=== PATIENT | female | born 1950 | race Caucasian/White ===

== ENCOUNTER 2021-07-05 08:45 | Inpatient (IN) | payer MEDICARE, BC ==
[2021-07-05] MEDS ORDERED: Sodium Chloride 0.9% 10 ML Syringe FLUSH PRN (09:31)
--- NOTE | 2021-07-05 09:41 | EDM.PDOC ---
ED HPI GENERAL MEDICAL PROBLEM - General Chief Complaint: Respiratory Problem Stated Complaint: SOB, DYSPNEA Time Seen by Provider: 07/05/21 09:29 Source of Information: Reports: Patient, RN History Limitations: Reports: No Limitations - History of Present Illness INITIAL COMMENTS - FREE TEXT/NARRATIVE: pt presents to the ED with complaints of one week of steadily worsening claude rtness of breath. associated productive cough and chills. denies fever and chest pain. PMH significant for 45 pack year smoking history but no official COPD diagnosis or PFTS, mixed HLD and unspecified tachycardia for which a beta yaw was started but no underlying etiology was elucidated. symptoms began shortly before xmas and started with fatigue. progressed to mild shortness of breath then became more significant with productive cough over the past 24-48 hours. she tried to rest at home but this did not help. moving around makes it worse. nothing makes it better. she has not had symptoms like this in the past. time of day does not alter symptoms. Onset: Gradual Onset Date: 06/26/21 Duration: Day(s): Location: Reports: Chest Severity: Moderate Improves with: Reports: None Worsens with: Reports: Movement Context: Reports: Sick Contact Associated Symptoms: Reports: Confusion, cough w sputum, Fever/Chills, Other (diarrhea) - Related Data Allergies Allergy/AdvReac Type Severity Reaction Status Date / Time No Known Allergies Allergy Verified 07/05/21 09:05 Home Meds: Home Meds Ascorbic Acid [Vitamin C] 500 mg PO BEDTIME 07/05/21 [History] Calcium Carb/Vit D3/Minerals [Calcium 600+D Plus Minerals] 1 each PO BID 07/05/21 [History] Cholecalciferol (Vitamin D3) [Vitamin D3] 2,000 unit PO DAILY 07/05/21 [History] Ferrous Sulfate [Iron] 325 mg PO DAILY 07/05/21 [History] Gabapentin [Neurontin] 600 mg PO BEDTIME 07/05/21 [History] Glucosam/Chond-MSM 2/C/D3/Delbert [Jghtttexyc-Knoweexzogt-QNG] 1 each PO BID 07/05/21 [History] Metoprolol Succinate 25 mg PO DAILY 07/05/21 [History] Venlafaxine HCl [Venlafaxine HCl ER] 150 mg PO BEDTIME 07/05/21 [History] atorvaSTATin [Lipitor] 20 mg PO BEDTIME 07/05/21 [History] Past Medical History Cardiovascular History: Reports: High Cholesterol, Other (See Below) (tachycardia, never worked up- started on beta yaw) Respiratory History: Reports: Other (See Below) (likely COPD. no official PFTs. 45 pack year smoking history) - Past Surgical History Cardiovascular Surgical History: Reports: None Respiratory Surgical History: Reports: None Social & Family History - Family History Family Medical History: No Pertinent Family History Cardiac: Reports: None - Tobacco Use Tobacco Use Status *Q: Current Every Day Tobacco User Tobacco Use Within Last Twelve Months: Cigarettes Other Tobacco Use Within Last Twelve Months: none Years of Tobacco use: 45 Smoking Cessation Information Provided To Patient: Yes Second Hand Smoke Exposure: No Second Hand Smoke Education Provided: No - Tobacco Core Measures Tobacco Use/Smoking Within Last 30 Days: Yes Smoking Frequency Within Last 30 Days: Reports: Five or More Cigarettes Per Day Smokeless Tobacco Use in Last 30 Days: No Smokeless Tobacco Use History: None Desires Tobacco Cessation Medication: Refuses FDA Approved Med - Caffeine Use Caffeine Use: Reports: Coffee - Alcohol Use Alcohol Use History: No Alcohol Use in Last Twelve Months: No - Recreational Drug Use Recreational Drug Use: No Drug Use in Last 12 Months: No - Sexual History Sexual History: Reports: Same Sex Partner, Other (See Below) (not currently sexually active) - Living Situation & Occupation Living situation: Reports: Single Occupation: Retired Social History Comment: lives at home with 2 dogs ED ROS GENERAL - Review of Systems Review Of Systems: See Below Constitutional: Reports: Chills HEENT: Reports: No Symptoms Respiratory: Reports: Shortness of Breath, Cough, Sputum Cardiovascular: Reports: No Symptoms Endocrine: Reports: No Symptoms GI/Abdominal: Reports: Diarrhea : Reports: No Symptoms Musculoskeletal: Reports: No Symptoms Skin: Reports: No Symptoms Neurological: Reports: No Symptoms Psychiatric: Reports: No Symptoms Hematologic/Lymphatic: Reports: No Symptoms Immunologic: Reports: No Symptoms ED EXAM, GENERAL - Physical Exam Exam: See Below Exam Limited By: No Limitations General Appearance: Alert, Mild Distress Eye Exam: Bilateral Eye: EOMI Ears: Normal External Exam, Hearing Grossly Normal Nose: Normal Inspection Throat/Mouth: Normal Voice, No Airway Compromise Head: Atraumatic, Normocephalic Neck: Normal Inspection, Supple Respiratory/Chest: No Accessory Muscle Use, Decreased Breath Sounds (throughout bilateral mid to lower lung pappas), Rhonchi (diffuse). No: Wheezing, Stridor, Accessory Muscle Use Cardiovascular: Regular Rate, Rhythm, No Edema, No JVD, No Murmur, No Rub GI/Abdominal: Soft, Non-Tender (Female) Exam: Deferred Rectal (Female) Exam: Deferred Back Exam: Full Range of Motion Extremities: Normal Inspection, Normal Range of Motion, Non-Tender, No Pedal Edema Neurological: Alert, Oriented, Normal Cognition Psychiatric: Normal Affect, Normal Mood Skin Exam: Warm, Dry, Intact Lymphatic: No Adenopathy Course - Vital Signs Last Recorded V/S: Last Vital Signs Temp 96.7 F L 07/05/21 08:50 Pulse 101 H 07/05/21 10:10 Resp 20 07/05/21 10:10 BP 128/55 L 07/05/21 10:10 Pulse Ox 92 L 07/05/21 10:10 - Orders/Labs/Meds Orders: Active Orders 24 hr Category Date Time Status Oxygen Therapy [RC] PRN Care 07/05/21 09:31 Active Peripheral IV Care [RC] . DIRECTED Care 07/05/21 09:33 Active Pulse Oximetry [RC] CONTINUOUS Care 07/05/21 09:31 Active Nothing per Oral Now Diet [DIET] Diet 07/05/21 Breakfast Active Chest 2V [CR] Stat Exams 07/05/21 09:31 Stop Req Sodium Chloride 0.9% [Saline Flush] Med 07/05/21 09:31 Active 10 ml FLUSH ASDIRECTED PRN Isolation [COMM] Routine Oth 07/05/21 09:07 Active Peripheral IV Insertion Adult [OM.PC] Urgent Oth 07/05/21 09:31 Ordered Medication Orders Oseltamivir Phosphate (Oseltamivir 75 Mg Cap) 75 mg PO BID [facility] Last Admin: 07/05/21 10:38 Dose: 75 mg Documented by: PENG Sodium Chloride (Sodium Chloride 0.9% 10 Ml Syringe) 10 ml FLUSH ASDIRECTED PRN PRN Reason: Keep Vein Open Labs: Laboratory Tests 07/05/21 07/05/21 07/05/21 Range/Units 09:06 09:20 09:20 WBC 13.7 H (4.0-10.2) K/uL RBC 4.44 (3.77-5.09) M/uL Hgb 12.9 (11.7-15.5) g/dL Hct 40.8 (34.0-46.0) % MCV 91.9 (84.0-98.0) fL MCH 29.1 (28.2-33.3) pg MCHC 31.6 L (31.7-36.0) g/dL RDW 13.3 (11.2-14.1) % Plt Count 326 (150-350) K/uL Neut % (Auto) 82.6 H (45.0-80.0) % Lymph % (Auto) 9.3 L (10.0-50.0) % Chaves % (Auto) 7.9 (2.0-14.0) % Eos % (Auto) 0.1 (0.0-5.0) % Baso % (Auto) 0.1 (0.0-2.0) % Neut # (Auto) 11.34 H (1.40-7.00) K/uL Lymph # (Auto) 1.28 (0.50-3.50) K/uL Chaves # (Auto) 1.08 H (0.00-1.00) K/uL Eos # (Auto) 0.02 (0.00-0.50) K/uL Baso # (Auto) 0.02 (0.00-0.20) K/uL D-Dimer, Quantitative 815 H (0-400) ng/mL Sodium (136-145) mmol/L Potassium (3.5-5.1) mmol/L Chloride (98-107) mmol/L Carbon Dioxide (21.0-32.0) mmol/L Anion Gap (7-15) meq/L BUN (7-18) mg/dL Creatinine (0.51-1.17) mg/dL Est Cr Clr Drug Dosing mL/min Estimated GFR (MDRD) mL/min Glucose (70-99) mg/dL Calcium (8.5-10.1) mg/dL Total Bilirubin (0.2-1.0) mg/dL AST (15-37) U/L ALT (12-78) U/L Alkaline Phosphatase (46-116) IU/L NT-Pro-B Natriuret Pep (0-125) pg/mL Total Protein (6.4-8.2) g/dL Albumin (3.4-5.0) g/dL Influenza Type A RNA Positive H (NEGATIVE) RSV RNA (INAAT) Negative (NEGATIVE) Influenza Type B RNA Negative (NEGATIVE) SARS-CoV-2 RNA (DAMON) Negative (NEGATIVE) 07/05/21 Range/Units 09:20 WBC (4.0-10.2) K/uL RBC (3.77-5.09) M/uL Hgb (11.7-15.5) g/dL Hct (34.0-46.0) % MCV (84.0-98.0) fL MCH (28.2-33.3) pg MCHC (31.7-36.0) g/dL RDW (11.2-14.1) % Plt Count (150-350) K/uL Neut % (Auto) (45.0-80.0) % Lymph % (Auto) (10.0-50.0) % Chaves % (Auto) (2.0-14.0) % Eos % (Auto) (0.0-5.0) % Baso % (Auto) (0.0-2.0) % Neut # (Auto) (1.40-7.00) K/uL Lymph # (Auto) (0.50-3.50) K/uL Chaves # (Auto) (0.00-1.00) K/uL Eos # (Auto) (0.00-0.50) K/uL Baso # (Auto) (0.00-0.20) K/uL D-Dimer, Quantitative (0-400) ng/mL Sodium 140 (136-145) mmol/L Potassium 4.1 (3.5-5.1) mmol/L Chloride 102 (98-107) mmol/L Carbon Dioxide 30.0 (21.0-32.0) mmol/L Anion Gap 8.0 (7-15) meq/L BUN 24 H (7-18) mg/dL Creatinine 0.90 (0.51-1.17) mg/dL Est Cr Clr Drug Dosing 57.37 mL/min Estimated GFR (MDRD) > 60 mL/min Glucose 116 H (70-99) mg/dL Calcium 8.8 (8.5-10.1) mg/dL Total Bilirubin 0.4 (0.2-1.0) mg/dL AST 33 (15-37) U/L ALT 32 (12-78) U/L Alkaline Phosphatase 85 (46-116) IU/L NT-Pro-B Natriuret Pep 85 (0-125) pg/mL Total Protein 7.6 (6.4-8.2) g/dL Albumin 3.0 L (3.4-5.0) g/dL Influenza Type A RNA (NEGATIVE) RSV RNA (INAAT) (NEGATIVE) Influenza Type B RNA (NEGATIVE) SARS-CoV-2 RNA (DAMON) (NEGATIVE) Meds: Medications Generic Name Dose Route Start Last Admin Trade Name Freq PRN Reason Stop Dose Admin Oseltamivir Phosphate 75 mg 07/05/21 10:30 07/05/21 10:38 Oseltamivir 75 Mg Cap PO 75 mg BID ABEBE Administration Sodium Chloride 10 ml 07/05/21 09:31 Sodium Chloride 0.9% 10 Ml Syringe FLUSH ASDIRECTED PRN Keep Vein Open Discontinued Medications Generic Name Dose Route Start Last Admin Trade Name Freq PRN Reason Stop Dose Admin Iopamidol 100 ml 07/05/21 10:46 Iopamidol 755 Mg/Ml 100 Ml Bottle IVPUSH 07/05/21 10:47 ONETIME ONE - Re-Assessments/Exams Free Text/Narrative Re-Assessment/Exam: 07/05/21 09:33 swab for covid/influenza/RSV. O2 sats low 90s on 2L supplemental oxygen. afebrile. CXR and labs ordered 07/05/21 10:30 influenza A positive. requiring 2L to maintain saturations >90%. WBC elevated. D dimer >800. will do CTA to rule out PE, although unlikely positive. start oseltamivir and admit to inpatient for acute respiratory failure with hypoxia secondary to influenza A. Departure - Departure Time of Disposition: 11:00 Disposition: Admitted As Inpatient 67 Condition: Fair Clinical Impression: Influenza A, Acute respiratory failure with hypoxia - Discharge Information *PRESCRIPTION DRUG MONITORING PROGRAM REVIEWED*: Not Applicable *COPY OF PRESCRIPTION DRUG MONITORING REPORT IN PATIENT MARINA: Not Applicable Sepsis Event Note (ED) - Focused Exam Vital Signs: Vital Signs Temp Pulse Resp BP Pulse Ox Pulse Ox 07/05/21 10:10 101 H 20 128/55 L 92 L 07/05/21 09:52 105 H 20 128/67 94 L 07/05/21 09:49 96 07/05/21 09:37 102 H 20 142/70 H 96 07/05/21 09:22 104 H 20 148/70 H 95 07/05/21 09:15 95 07/05/21 09:07 107 H 20 135/73 95 07/05/21 08:52 108 H 20 137/67 96 07/05/21 08:50 96.7 F L 102 H 20 153/61 H 78 L 95 07/05/21 08:46 96 07/05/21 08:45 78 L - Problem List Review Problem List Initiated/Reviewed/Updated: Yes - My Orders Last 24 Hours: My Active Orders 07/05/21 Breakfast Nothing per Oral Now Diet [DIET] 07/05/21 09:07 Isolation [COMM] Routine 07/05/21 09:31 Oxygen Therapy [RC] PRN Pulse Oximetry [RC] CONTINUOUS Chest 2V [CR] Stat Sodium Chloride 0.9% [Saline Flush] 10 ml FLUSH ASDIRECTED PRN Peripheral IV Insertion Adult [OM.PC] Urgent 07/05/21 09:33 Peripheral IV Care [RC] . DIRECTED - Assessment/Plan Admission H&P: Please use this note as an admission H&P Last 24 Hours: My Active Orders 07/05/21 Breakfast Nothing per Oral Now Diet [DIET] 07/05/21 09:07 Isolation [COMM] Routine 07/05/21 09:31 Oxygen Therapy [RC] PRN Pulse Oximetry [RC] CONTINUOUS Chest 2V [CR] Stat Sodium Chloride 0.9% [Saline Flush] 10 ml FLUSH ASDIRECTED PRN Peripheral IV Insertion Adult [OM.PC] Urgent 07/05/21 09:33 Peripheral IV Care [RC] . DIRECTED Assessment:: influenza A acute respiratory failure with hypoxia secondary to above likely COPD, no official PFTs - influenza A positive swab - requiring 2L supplemental oxygen to maintain saturations >88% - d dimer elevated Plan: - CTA chest, PE protocol: rule out PE, follow results as its still pending - oseltamivir 75mg bid for 5 days - no prednisone needed as she has no wheeze - PRN duo nebs every 4 hours - wean oxygen as tolerated to room air - refer to pulmonology at [facility] on discharge for official PFTs Chronic conditions: continue current home meds as ordered. - nicotine dependence, cigarettes, uncomplicated: smoking cessation counseling provided for 8 minutes. she has used chantix in the past but hasn't smoked in a week and does not feel it is necessary now. nicotine replacement per protocol, currently requesting nothing - unspecified tachycardia: has never been worked up, currently takes a beta yaw, will continue and recommend investigation into etiology in the future. - mixed HLD: continue statin
[2021-07-05 10:02] LABS: CORONAVIRUS COVID-19 NAA NEGATIVE (NEGATIVE); RESPIRATORY SYNCYTIAL VIR NAA NEGATIVE (NEGATIVE)
[2021-07-05 10:08] LABS: CHLORIDE,CL 102 mmol/L (98-107); SODIUM,NA 140 mmol/L (136-145)
[2021-07-05] MEDS ORDERED: Lactated Ringers 1,000 ML IV ONE (10:15)
[2021-07-05] MEDS: Oseltamivir 75 MG Cap PO SCH ×2 (10:38→17:58)
[2021-07-05] MEDS ORDERED: Iopamidol 755 Mg/ML 100 ML Bottle IVPUSH ONE (10:46)
[2021-07-05] MEDS ORDERED: Ondansetron 4 MG Tab.DIS PO PRN (11:01)
[2021-07-05] MEDS ORDERED: Polyethylene Glycol 3350 Powder 17 GM Packet PO PRN (11:01)
[2021-07-05] MEDS: Albuterol/Ipratropium 3.0-0.5 MG/3 ML Neb Soln NEB PRN ×2 (12:35→17:58)
[2021-07-05] MEDS: Metoprolol Succinate 25 MG Tab.ER PO SCH (15:32)
[2021-07-05] MEDS: Acetaminophen 325 MG Tab PO PRN (18:05)
[2021-07-05] MEDS: Gabapentin 300 MG Cap PO SCH (19:30)
[2021-07-05] MEDS: atorvaSTATin 40 MG Tab PO SCH (19:30)
[2021-07-05] MEDS: Venlafaxine 75 MG Cap.ER PO SCH (19:30)
[2021-07-05] MEDS: Temazepam 15 MG Cap PO PRN (20:15)
[2021-07-05] MEDS: valACYclovir 1,000 MG Tab PO SCH (22:15)
--- NOTE | 2021-07-06 07:46 | PCM.PN ---
- General Info Date of Service: 07/06/21 Admission Dx/Problem (Free Text): influenza A, acute respiratory failure with hypoxia Subjective Update: feeling better today but still requiring supplemental oxygen. very weak overall. Functional Status: Reports: Pain Controlled, Tolerating Diet, Ambulating. Denies: New Symptoms - Review of Systems General: Reports: Weakness, Fatigue HEENT: Reports: No Symptoms Pulmonary: Reports: Shortness of Breath, Cough, Sputum Cardiovascular: Reports: Dyspnea on Exertion Gastrointestinal: Reports: No Symptoms Genitourinary: Reports: No Symptoms Musculoskeletal: Reports: No Symptoms Skin: Reports: No Symptoms Neurological: Reports: No Symptoms Psychiatric: Reports: No Symptoms - Patient Data Vitals - Most Recent: Last Vital Signs Temp 98.5 F 07/06/21 04:00 Pulse 86 07/06/21 04:00 Resp 20 07/06/21 04:00 BP 120/63 07/06/21 04:00 Pulse Ox 96 07/06/21 04:00 Weight - Most Recent: 173 lb 3.2 oz I&O - Last 24 Hours: Intake & Output 07/05/21 07/06/21 07/06/21 22:59 06:59 14:59 Intake Total 540 300 Output Total 600 100 Balance -60 200 Lab Results Last 24 Hours: Laboratory Results - last 24 hr 07/05/21 07/05/21 07/05/21 Range/Units 09:06 09:20 09:20 WBC 13.7 H (4.0-10.2) K/uL RBC 4.44 (3.77-5.09) M/uL Hgb 12.9 (11.7-15.5) g/dL Hct 40.8 (34.0-46.0) % MCV 91.9 (84.0-98.0) fL MCH 29.1 (28.2-33.3) pg MCHC 31.6 L (31.7-36.0) g/dL RDW 13.3 (11.2-14.1) % Plt Count 326 (150-350) K/uL MPV (7.00-11.50) fL Neut % (Auto) 82.6 H (45.0-80.0) % Lymph % (Auto) 9.3 L (10.0-50.0) % [place] % (Auto) 7.9 (2.0-14.0) % Eos % (Auto) 0.1 (0.0-5.0) % Baso % (Auto) 0.1 (0.0-2.0) % Neut # (Auto) 11.34 H (1.40-7.00) K/uL Lymph # (Auto) 1.28 (0.50-3.50) K/uL [place] # (Auto) 1.08 H (0.00-1.00) K/uL Eos # (Auto) 0.02 (0.00-0.50) K/uL Baso # (Auto) 0.02 (0.00-0.20) K/uL D-Dimer, Quantitative 815 H (0-400) ng/mL Sodium (136-145) mmol/L Potassium (3.5-5.1) mmol/L Chloride (98-107) mmol/L Carbon Dioxide (21.0-32.0) mmol/L Anion Gap (7-15) meq/L BUN (7-18) mg/dL Creatinine (0.51-1.17) mg/dL Est Cr Clr Drug Dosing mL/min Estimated GFR (MDRD) mL/min Glucose (70-99) mg/dL Calcium (8.5-10.1) mg/dL Total Bilirubin (0.2-1.0) mg/dL AST (15-37) U/L ALT (12-78) U/L Alkaline Phosphatase (46-116) IU/L NT-Pro-B Natriuret Pep (0-125) pg/mL Total Protein (6.4-8.2) g/dL Albumin (3.4-5.0) g/dL Influenza Type A RNA Positive H (NEGATIVE) RSV RNA (INAAT) Negative (NEGATIVE) Influenza Type B RNA Negative (NEGATIVE) SARS-CoV-2 RNA ([facility]) Negative (NEGATIVE) 07/05/21 07/06/21 Range/Units 09:20 07:28 WBC 8.9 (4.0-10.2) K/uL RBC 4.08 (3.77-5.09) M/uL Hgb 11.9 (11.7-15.5) g/dL Hct 37.8 (34.0-46.0) % MCV 92.6 (84.0-98.0) fL MCH 29.2 (28.2-33.3) pg MCHC 31.5 L (31.7-36.0) g/dL RDW 13.1 (11.2-14.1) % Plt Count 317 (150-350) K/uL MPV 9.70 (7.00-11.50) fL Neut % (Auto) (45.0-80.0) % Lymph % (Auto) (10.0-50.0) % [place] % (Auto) (2.0-14.0) % Eos % (Auto) (0.0-5.0) % Baso % (Auto) (0.0-2.0) % Neut # (Auto) (1.40-7.00) K/uL Lymph # (Auto) (0.50-3.50) K/uL [place] # (Auto) (0.00-1.00) K/uL Eos # (Auto) (0.00-0.50) K/uL Baso # (Auto) (0.00-0.20) K/uL D-Dimer, Quantitative (0-400) ng/mL Sodium 140 (136-145) mmol/L Potassium 4.1 (3.5-5.1) mmol/L Chloride 102 (98-107) mmol/L Carbon Dioxide 30.0 (21.0-32.0) mmol/L Anion Gap 8.0 (7-15) meq/L BUN 24 H (7-18) mg/dL Creatinine 0.90 (0.51-1.17) mg/dL Est Cr Clr Drug Dosing 57.37 mL/min Estimated GFR (MDRD) > 60 mL/min Glucose 116 H (70-99) mg/dL Calcium 8.8 (8.5-10.1) mg/dL Total Bilirubin 0.4 (0.2-1.0) mg/dL AST 33 (15-37) U/L ALT 32 (12-78) U/L Alkaline Phosphatase 85 (46-116) IU/L NT-Pro-B Natriuret Pep 85 (0-125) pg/mL Total Protein 7.6 (6.4-8.2) g/dL Albumin 3.0 L (3.4-5.0) g/dL Influenza Type A RNA (NEGATIVE) RSV RNA (INAAT) (NEGATIVE) Influenza Type B RNA (NEGATIVE) SARS-CoV-2 RNA ([facility]) (NEGATIVE) Med Orders - Current: Current Medications Acetaminophen (Acetaminophen 325 Mg Tab) 650 mg PO Q4H PRN PRN Reason: Pain (Mild 1-3)/fever Last Admin: 07/05/21 18:05 Dose: 650 mg Documented by: Albuterol/Ipratropium (Albuterol/Ipratropium 3.0-0.5 Mg/3 Ml Neb Soln) 3 ml NEB Q4H PRN PRN Reason: Dyspnea Last Admin: 07/05/21 17:58 Dose: 3 ml Documented by: Atorvastatin Calcium (Atorvastatin 40 Mg Tab) 20 mg PO BEDTIME [facility] Last Admin: 07/05/21 19:30 Dose: 20 mg Documented by: Enoxaparin Sodium (Enoxaparin 40 Mg/0.4 Ml Syringe) 40 mg SUBCUT DAILY [facility] Ferrous Sulfate (Ferrous Sulfate 325 Mg Tab) 325 mg PO DAILY [facility] Gabapentin (Gabapentin 300 Mg Cap) 600 mg PO BEDTIME [facility] Last Admin: 07/05/21 19:30 Dose: 600 mg Documented by: Metoprolol Succinate (Metoprolol Succinate 25 Mg Tab.Er) 25 mg PO DAILY [facility] Last Admin: 07/05/21 15:32 Dose: 25 mg Documented by: Ondansetron HCl (Ondansetron 4 Mg Tab.Dis) 8 mg PO Q6H PRN PRN Reason: Nausea/Vomiting Oseltamivir Phosphate (Oseltamivir 75 Mg Cap) 75 mg PO BID [facility] Stop: 07/10/21 10:30 Last Admin: 07/05/21 17:58 Dose: 75 mg Documented by: Polyethylene Glycol (Polyethylene Glycol 3350 Powder 17 Gm Packet) 17 gm PO DAILY PRN PRN Reason: Constipation Sodium Chloride (Sodium Chloride 0.9% 10 Ml Syringe) 10 ml FLUSH ASDIRECTED PRN PRN Reason: Keep Vein Open Temazepam (Temazepam 15 Mg Cap) 15 mg PO BEDTIME PRN PRN Reason: Insomnia Last Admin: 07/05/21 20:15 Dose: 15 mg Documented by: Valacyclovir HCl (Valacyclovir 1,000 Mg Tab) 1,000 mg PO DAILY [facility] Stop: 07/09/21 12:00 Last Admin: 07/05/21 22:15 Dose: 1,000 mg Documented by: Venlafaxine HCl (Venlafaxine 75 Mg Cap.Er) 150 mg PO BEDTIME [facility] Last Admin: 07/05/21 19:30 Dose: 150 mg Documented by: Discontinued Medications Lactated Ringer's (Ringers, Lactated) 1,000 mls @ 999 mls/hr IV .BOLUS ONE Stop: 07/05/21 11:15 Last Admin: 07/05/21 10:15 Dose: 999 mls/hr Documented by: Iopamidol (Iopamidol 755 Mg/Ml 100 Ml Bottle) 100 ml IVPUSH ONETIME ONE Stop: 07/05/21 10:47 Last Admin: 07/05/21 11:33 Dose: 100 ml Documented by: Metoprolol Succinate (Metoprolol Succinate 25 Mg Tab.Er) 25 mg PO DAILY [facility] - Exam Quality Assessment: Supplemental Oxygen (2L to maintain saturations >88%) General: Alert, Oriented, Cooperative, No Acute Distress HEENT: EOMI Neck: Supple, No JVD Lungs: Decreased Breath Sounds (bilateral bases), Wheezing (espiratory in anterior lung pappas and posterior RML and RUL). No: Crackles, Rales, Rhonchi, Rub Cardiovascular: Regular Rate, Regular Rhythm, No Murmurs GI/Abdominal Exam: Distended (Female) Exam: Deferred Back Exam: Full Range of Motion Extremities: Normal Inspection, Normal Range of Motion, Non-Tender, No Pedal Edema Skin: Warm, Dry, Intact Neurological: No New Focal Deficit Psy/Mental Status: Alert, Normal Affect, Normal Mood - Patient Data Lab Results Last 24 hrs: Laboratory Results - last 24 hr 07/05/21 07/05/21 07/05/21 Range/Units 09:06 09:20 09:20 WBC 13.7 H (4.0-10.2) K/uL RBC 4.44 (3.77-5.09) M/uL Hgb 12.9 (11.7-15.5) g/dL Hct 40.8 (34.0-46.0) % MCV 91.9 (84.0-98.0) fL MCH 29.1 (28.2-33.3) pg MCHC 31.6 L (31.7-36.0) g/dL RDW 13.3 (11.2-14.1) % Plt Count 326 (150-350) K/uL MPV (7.00-11.50) fL Neut % (Auto) 82.6 H (45.0-80.0) % Lymph % (Auto) 9.3 L (10.0-50.0) % [place] % (Auto) 7.9 (2.0-14.0) % Eos % (Auto) 0.1 (0.0-5.0) % Baso % (Auto) 0.1 (0.0-2.0) % Neut # (Auto) 11.34 H (1.40-7.00) K/uL Lymph # (Auto) 1.28 (0.50-3.50) K/uL [place] # (Auto) 1.08 H (0.00-1.00) K/uL Eos # (Auto) 0.02 (0.00-0.50) K/uL Baso # (Auto) 0.02 (0.00-0.20) K/uL D-Dimer, Quantitative 815 H (0-400) ng/mL Sodium (136-145) mmol/L Potassium (3.5-5.1) mmol/L Chloride (98-107) mmol/L Carbon Dioxide (21.0-32.0) mmol/L Anion Gap (7-15) meq/L BUN (7-18) mg/dL Creatinine (0.51-1.17) mg/dL Est Cr Clr Drug Dosing mL/min Estimated GFR (MDRD) mL/min Glucose (70-99) mg/dL Calcium (8.5-10.1) mg/dL Total Bilirubin (0.2-1.0) mg/dL AST (15-37) U/L ALT (12-78) U/L Alkaline Phosphatase (46-116) IU/L NT-Pro-B Natriuret Pep (0-125) pg/mL Total Protein (6.4-8.2) g/dL Albumin (3.4-5.0) g/dL Influenza Type A RNA Positive H (NEGATIVE) RSV RNA (INAAT) Negative (NEGATIVE) Influenza Type B RNA Negative (NEGATIVE) SARS-CoV-2 RNA ([facility]) Negative (NEGATIVE) 07/05/21 07/06/21 Range/Units 09:20 07:28 WBC 8.9 (4.0-10.2) K/uL RBC 4.08 (3.77-5.09) M/uL Hgb 11.9 (11.7-15.5) g/dL Hct 37.8 (34.0-46.0) % MCV 92.6 (84.0-98.0) fL MCH 29.2 (28.2-33.3) pg MCHC 31.5 L (31.7-36.0) g/dL RDW 13.1 (11.2-14.1) % Plt Count 317 (150-350) K/uL MPV 9.70 (7.00-11.50) fL Neut % (Auto) (45.0-80.0) % Lymph % (Auto) (10.0-50.0) % [place] % (Auto) (2.0-14.0) % Eos % (Auto) (0.0-5.0) % Baso % (Auto) (0.0-2.0) % Neut # (Auto) (1.40-7.00) K/uL Lymph # (Auto) (0.50-3.50) K/uL [place] # (Auto) (0.00-1.00) K/uL Eos # (Auto) (0.00-0.50) K/uL Baso # (Auto) (0.00-0.20) K/uL D-Dimer, Quantitative (0-400) ng/mL Sodium 140 (136-145) mmol/L Potassium 4.1 (3.5-5.1) mmol/L Chloride 102 (98-107) mmol/L Carbon Dioxide 30.0 (21.0-32.0) mmol/L Anion Gap 8.0 (7-15) meq/L BUN 24 H (7-18) mg/dL Creatinine 0.90 (0.51-1.17) mg/dL Est Cr Clr Drug Dosing 57.37 mL/min Estimated GFR (MDRD) > 60 mL/min Glucose 116 H (70-99) mg/dL Calcium 8.8 (8.5-10.1) mg/dL Total Bilirubin 0.4 (0.2-1.0) mg/dL AST 33 (15-37) U/L ALT 32 (12-78) U/L Alkaline Phosphatase 85 (46-116) IU/L NT-Pro-B Natriuret Pep 85 (0-125) pg/mL Total Protein 7.6 (6.4-8.2) g/dL Albumin 3.0 L (3.4-5.0) g/dL Influenza Type A RNA (NEGATIVE) RSV RNA (INAAT) (NEGATIVE) Influenza Type B RNA (NEGATIVE) SARS-CoV-2 RNA ([facility]) (NEGATIVE) Result Diagrams: 07/06/21 07:28 07/06/21 07:28 Sepsis Event Note - Evaluation Sepsis Screening Result: No Definite Risk - Focused Exam Vital Signs: Vital Signs Temp Pulse Resp BP Pulse Ox 07/06/21 04:00 98.5 F 86 20 120/63 96 07/06/21 00:55 98.4 F 86 20 118/64 95 07/06/21 00:00 95 07/05/21 20:26 89 L 07/05/21 19:45 91 L - Problem List Review Problem List Initiated/Reviewed/Updated: Yes - My Orders Last 24 Hours: My Active Orders 07/05/21 09:07 Isolation [COMM] Routine 07/05/21 09:31 Oxygen Therapy [RC] PRN Pulse Oximetry [RC] CONTINUOUS Chest 2V [CR] Stat Sodium Chloride 0.9% [Saline Flush] 10 ml FLUSH ASDIRECTED PRN Peripheral IV Insertion Adult [OM.PC] Urgent 07/05/21 09:33 Peripheral IV Care [RC] . DIRECTED 07/05/21 10:27 Chest PE [Ang Chest] [CT] Stat 07/05/21 10:30 Oseltamivir [Tamiflu] 75 mg PO BID 07/05/21 11:01 Patient Status [ADT] Routine May Shower [RC] ASDIRECTED Oxygen Therapy [RC] 2300 Up With Assistance [RC] ASDIRECTED VTE/DVT Education [RC] PER UNIT ROUTINE Vital Signs [RC] Q4HR Acetaminophen [TylenoL] 650 mg PO Q4H PRN Albuterol/Ipratropium [DuoNeb 3.0-0.5 MG/3 ML] 3 ml NEB Q4H PRN Ondansetron [Zofran ODT] 8 mg PO Q6H PRN polyethylene glycoL 3350 [MiraLAX] 17 gm PO DAILY PRN Resuscitation Status Routine 07/05/21 11:03 Intake and Output [RC] 06,18 07/05/21 11:08 RT Aerosol Therapy [RC] ASDIRECTED 07/05/21 15:15 Metoprolol Succinate [Toprol XL] 25 mg PO DAILY 07/05/21 19:48 Temazepam [Restoril] 15 mg PO BEDTIME PRN 07/05/21 20:00 Gabapentin [Neurontin] 600 mg PO BEDTIME Venlafaxine [Effexor XR] 150 mg PO BEDTIME atorvaSTATin [Lipitor] 20 mg PO BEDTIME 07/05/21 22:15 valACYclovir [Valtrex] 1,000 mg PO DAILY 07/06/21 07:28 BASIC METABOLIC PANEL,BMP [CHEM] AM 07/06/21 Breakfast Regular Diet [DIET] 07/06/21 07:44 Incentive Spirometry [RT Incentive Spirometry] [RC] Q1HWA 07/06/21 08:00 Enoxaparin [Lovenox] 40 mg SUBCUT DAILY Ferrous Sulfate 325 mg PO DAILY - Assessment Assessment:: Active problems: influenza A acute respiratory failure with hypoxia secondary to above likely COPD, no official PFTs, with exacerbation - influenza A positive swab - requiring 2L supplemental oxygen to maintain saturations >88% - d dimer elevated Plan: - CTA chest, PE protocol: rule out PE, follow results as its still pending - oseltamivir 75mg bid for 5 days - no prednisone needed as she has no wheeze - PRN duo nebs every 4 hours - wean oxygen as tolerated to room air - IS every hour while awake - prednisone 40mg once daily for 5 days 2/2 new wheeze - refer to pulmonology at [facility] on discharge for official PFTs Chronic conditions: continue current home meds as ordered. - nicotine dependence, cigarettes, uncomplicated: smoking cessation counseling provided for 8 minutes. she has used chantix in the past but hasn't smoked in a week and does not feel it is necessary now. nicotine replacement per protocol, currently requesting nothing - unspecified tachycardia: has never been worked up, currently takes a beta yaw, will continue and recommend investigation into etiology in the future. - mixed HLD: continue statin code status: DNR/DNI DVT prophylaxis: subQ lovenox
[2021-07-06] MEDS ORDERED: Metoprolol Succinate 25 MG Tab.ER PO SCH (08:00)
[2021-07-06] MEDS: Metoprolol Succinate 25 MG Tab.ER PO SCH (08:05)
[2021-07-06] MEDS: valACYclovir 1,000 MG Tab PO SCH (08:05)
[2021-07-06] MEDS: Ferrous Sulfate 325 MG Tab PO SCH (08:05)
[2021-07-06] MEDS: Oseltamivir 75 MG Cap PO SCH ×2 (08:06→17:43)
[2021-07-06] MEDS: Enoxaparin 40 MG/0.4 ML Syringe SUBCUT SCH (08:06)
[2021-07-06 08:10] LABS: CHLORIDE,CL 104 mmol/L (98-107); SODIUM,NA 142 mmol/L (136-145)
[2021-07-06] MEDS: predniSONE 20 MG Tab PO SCH (09:56)
[2021-07-06] MEDS: Albuterol/Ipratropium 3.0-0.5 MG/3 ML Neb Soln NEB PRN (20:17)
[2021-07-06] MEDS: atorvaSTATin 40 MG Tab PO SCH (20:17)
[2021-07-06] MEDS: Gabapentin 300 MG Cap PO SCH (20:18)
[2021-07-06] MEDS: Temazepam 15 MG Cap PO PRN (20:18)
[2021-07-06] MEDS: Venlafaxine 75 MG Cap.ER PO SCH (20:18)
[2021-07-07] MEDS: Enoxaparin 40 MG/0.4 ML Syringe SUBCUT SCH (07:43)
[2021-07-07] MEDS: valACYclovir 1,000 MG Tab PO SCH (07:44)
[2021-07-07] MEDS: predniSONE 20 MG Tab PO SCH (07:44)
[2021-07-07] MEDS: Ferrous Sulfate 325 MG Tab PO SCH (07:44)
[2021-07-07] MEDS: Oseltamivir 75 MG Cap PO SCH ×2 (07:45→18:31)
[2021-07-07] MEDS: Metoprolol Succinate 25 MG Tab.ER PO SCH (07:45)
[2021-07-07] MEDS: Albuterol/Ipratropium 3.0-0.5 MG/3 ML Neb Soln NEB PRN (07:49)
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
[2021-07-07] MEDS: Albuterol/Ipratropium 3.0-0.5 MG/3 ML Neb Soln NEB SCH ×4 (12:39→23:34)
[2021-07-07] MEDS: Acetaminophen 325 MG Tab PO PRN (14:53)
[2021-07-07] MEDS: atorvaSTATin 40 MG Tab PO SCH (19:46)
[2021-07-07] MEDS: Gabapentin 300 MG Cap PO SCH (19:46)
[2021-07-07] MEDS: Venlafaxine 75 MG Cap.ER PO SCH (19:47)
[2021-07-07] MEDS: Temazepam 15 MG Cap PO PRN (19:51)
[2021-07-08] MEDS: Albuterol/Ipratropium 3.0-0.5 MG/3 ML Neb Soln NEB SCH ×5 (04:55→19:31)
[2021-07-08 07:53] LABS: CHLORIDE,CL 104 mmol/L (98-107); SODIUM,NA 143 mmol/L (136-145)
[2021-07-08 07:54] LABS: ANION GAP 10.1 meq/L (7-15)
[2021-07-08] MEDS: Oseltamivir 75 MG Cap PO SCH ×2 (08:52→17:36)
[2021-07-08] MEDS: Ferrous Sulfate 325 MG Tab PO SCH (08:52)
[2021-07-08] MEDS: valACYclovir 1,000 MG Tab PO SCH (08:52)
[2021-07-08] MEDS: Metoprolol Succinate 25 MG Tab.ER PO SCH (08:53)
[2021-07-08] MEDS: predniSONE 20 MG Tab PO SCH (08:53)
[2021-07-08] MEDS: Enoxaparin 40 MG/0.4 ML Syringe SUBCUT SCH (08:54)
--- NOTE | 2021-07-08 10:06 | EDM.PDOC ---
<MarisaZelalem W - Last Filed: 07/08/21 10:06> ED HPI GENERAL MEDICAL PROBLEM - General Chief Complaint: Respiratory Problem Stated Complaint: SOB, DYSPNEA Time Seen by Provider: 07/05/21 09:29 Source of Information: Reports: Patient, RN History Limitations: Reports: No Limitations - History of Present Illness INITIAL COMMENTS - FREE TEXT/NARRATIVE: pt presents to the ED with complaints of one week of steadily worsening shortness of breath. associated productive cough and chills. denies fever and chest pain. PMH significant for 45 pack year smoking history but no official COPD diagnosis or PFTS, mixed HLD and unspecified tachycardia for which a beta yaw was started but no underlying etiology was elucidated. symptoms began shortly before xmas and started with fatigue. progressed to mild shortness of breath then became more significant with productive cough over the past 24-48 hours. she tried to rest at home but this did not help. moving around makes it worse. nothing makes it better. she has not had symptoms like this in the past. time of day does not alter symptoms. Onset: Gradual Onset Date: 06/26/21 Duration: Day(s): Location: Reports: Chest Severity: Moderate Improves with: Reports: None Worsens with: Reports: Movement Context: Reports: Sick Contact Associated Symptoms: Reports: Confusion, cough w sputum, Fever/Chills, Other (diarrhea) - Related Data Allergies Allergy/AdvReac Type Severity Reaction Status Date / Time No Known Allergies Allergy Verified 07/05/21 09:05 Home Meds: Home Meds Ascorbic Acid [Vitamin C] 500 mg PO BEDTIME 07/05/21 [History] Calcium Carb/Vit D3/Minerals [Calcium 600+D Plus Minerals] 1 each PO BID 07/05/21 [History] Cholecalciferol (Vitamin D3) [Vitamin D3] 2,000 unit PO DAILY 07/05/21 [History] Ferrous Sulfate [Iron] 325 mg PO DAILY 07/05/21 [History] Gabapentin [Neurontin] 600 mg PO BEDTIME 07/05/21 [History] Glucosam/Chond-MSM 2/C/D3/Delbert [Pwswmbfhks-Oimexoyglbs-IVL] 1 each PO BID 07/05/21 [History] Metoprolol Succinate 25 mg PO DAILY 07/05/21 [History] Venlafaxine HCl [Venlafaxine HCl ER] 150 mg PO BEDTIME 07/05/21 [History] atorvaSTATin [Lipitor] 20 mg PO BEDTIME 07/05/21 [History] Oseltamivir [Tamiflu] 75 mg PO BID #3 cap 07/09/21 [Rx] Sodium Chloride 0.9% [Saline Flush] 10 ml FLUSH ASDIRECTED PRN syringe 07/09/21 [Rx] Temazepam [Restoril] 15 mg PO BEDTIME PRN cap 07/09/21 [Rx] predniSONE 40 mg PO WITHBREAKFAST #1 tablet 07/09/21 [Rx] Past Medical History HEENT History: Reports: Impaired Vision Cardiovascular History: Reports: High Cholesterol, Other (See Below) Other Cardiovascular History: tachycardia Respiratory History: Reports: Other (See Below) Other Respiratory History: 45 year hx of smoking Genitourinary History: Reports: Renal Calculus, Other (See Below) Other Genitourinary History: x 2 episodes Musculoskeletal History: Reports: Back Pain, Chronic, Osteoarthritis, Other (See Below) Other Musculoskeletal History: restless leg syndrome - Infectious Disease History Infectious Disease History: Reports: Other (See Below) Other Infectious Disease History: covid may 2020 - Past Surgical History Cardiovascular Surgical History: Reports: None Respiratory Surgical History: Reports: None GI Surgical History: Reports: Colonoscopy Female Surgical History: Reports: Kidney stone extraction, Lithotripsy/ESWL Musculoskeletal Surgical History: Reports: Arthroscopic Knee, Other (See Below) Other Musculoskeletal Surgeries/Procedures:: L torn meniscus with repair Social & Family History - Family History Family Medical History: No Pertinent Family History Cardiac: Reports: None - Tobacco Use Tobacco Use Status *Q: Current Every Day Tobacco User Years of Tobacco use: 45 Packs/Tins Daily: 0.5 Second Hand Smoke Exposure: No - Caffeine Use Caffeine Use: Reports: Coffee - Recreational Drug Use Recreational Drug Use: No Drug Use in Last 12 Months: No - Sexual History Sexual History: Reports: Same Sex Partner, Other (See Below) (not currently sexually active) - Living Situation & Occupation Living situation: Reports: Single Occupation: Retired ED EXAM, GENERAL - Physical Exam Free Text/Narrative:: pt presents to the ED with complaints of one week of steadily worsening shortness of breath. associated productive cough and chills. denies fever and chest pain. PMH significant for 45 pack year smoking history but no official COPD diagnosis or PFTS, mixed HLD and unspecified tachycardia for which a beta yaw was started but no underlying etiology was elucidated. symptoms began shortly before xmas and started with fatigue. progressed to mild shortness of breath then became more significant with productive cough over the past 24-48 hours. she tried to rest at home but this did not help. moving around makes it worse. nothing makes it better. she has not had symptoms like this in the past. time of day does not alter symptoms. Exam Limited By: No Limitations General Appearance: Alert, Mild Distress Ears: Normal External Exam, Hearing Grossly Normal Nose: Normal Inspection Throat/Mouth: Normal Voice, No Airway Compromise Head: Atraumatic, Normocephalic Neck: Normal Inspection, Supple Respiratory/Chest: No Accessory Muscle Use, Decreased Breath Sounds (throughout bilateral mid to lower lung pappas), Rhonchi (diffuse). No: Wheezing, Stridor, Accessory Muscle Use Cardiovascular: Regular Rate, Rhythm, No Edema, No JVD, No Murmur, No Rub Peripheral Pulses: 4+: Radial (R) GI/Abdominal: Soft, Non-Tender, No Organomegaly, No Distention, No Mass Back Exam: Full Range of Motion Extremities: Normal Inspection, Normal Range of Motion, No Pedal Edema, Normal Capillary Refill Neurological: Alert, Oriented, Normal Cognition Psychiatric: Normal Affect, Normal Mood Skin Exam: Warm, Dry, Intact Lymphatic: No Adenopathy Departure - Departure Disposition: Admitted As Inpatient 67 Condition: Fair Clinical Impression: Influenza A, Acute respiratory failure with hypoxia - Discharge Information *PRESCRIPTION DRUG MONITORING PROGRAM REVIEWED*: Not Applicable *COPY OF PRESCRIPTION DRUG MONITORING REPORT IN PATIENT MARINA: Not Applicable Sepsis Event Note (ED) - Evaluation Sepsis Screening Result: No Definite Risk <Meron Glover - Last Filed: 07/09/21 08:13> ED ROS GENERAL - Review of Systems Review Of Systems: See Below Constitutional: Reports: No Symptoms HEENT: Reports: No Symptoms Respiratory: Reports: No Symptoms Cardiovascular: Reports: Dyspnea on Exertion Endocrine: Reports: No Symptoms GI/Abdominal: Reports: No Symptoms : Reports: No Symptoms Musculoskeletal: Reports: No Symptoms Skin: Reports: No Symptoms ED EXAM, GENERAL - Physical Exam Exam: See Below Course - Vital Signs Last Recorded V/S: Last Vital Signs Temp 98.2 F 07/09/21 07:59 Pulse 74 07/09/21 07:59 Resp 18 07/09/21 07:59 BP 139/79 07/09/21 07:59 Pulse Ox 95 07/09/21 08:00 - Orders/Labs/Meds Orders: Medication Orders Acetaminophen (Acetaminophen 325 Mg Tab) 650 mg PO Q4H PRN PRN Reason: Pain (Mild 1-3)/fever Last Admin: 07/08/21 19:27 Dose: 650 mg Documented by: Admin: 07/07/21 14:53 Dose: 650 mg Documented by: Admin: 07/05/21 18:05 Dose: 650 mg Documented by: HEATHER Albuterol/Ipratropium (Albuterol/Ipratropium 3.0-0.5 Mg/3 Ml Neb Soln) 3 ml NEB Q4H [facility] Last Admin: 07/09/21 07:15 Dose: 3 ml Documented by: Admin: 07/09/21 04:10 Dose: 3 ml Documented by: Admin: 07/09/21 00:20 Dose: 3 ml Documented by: Admin: 07/08/21 19:31 Dose: 3 ml Documented by: Admin: 07/08/21 16:01 Dose: 3 ml Documented by: Admin: 07/08/21 12:47 Dose: 3 ml Documented by: Admin: 07/08/21 08:52 Dose: 3 ml Documented by: Admin: 07/08/21 04:55 Dose: 3 ml Documented by: Admin: 07/07/21 23:34 Dose: 3 ml Documented by: Admin: 07/07/21 19:46 Dose: 3 ml Documented by: Admin: 07/07/21 16:06 Dose: 3 ml Documented by: Admin: 07/07/21 12:39 Dose: 3 ml Documented by: MELVA Atorvastatin Calcium (Atorvastatin 40 Mg Tab) 20 mg PO BEDTIME [facility] Last Admin: 07/08/21 19:29 Dose: 20 mg Documented by: Admin: 07/07/21 19:46 Dose: 20 mg Documented by: Admin: 07/06/21 20:17 Dose: 20 mg Documented by: Admin: 07/05/21 19:30 Dose: 20 mg Documented by: [email or web address] Docosanol (Docosanol 10% Cream 2 Gm Tube) 0 gm TOP Q4HWA [facility] Last Admin: 07/09/21 07:15 Dose: 1 applic Documented by: Admin: 07/09/21 04:10 Dose: 1 applic Documented by: Admin: 07/09/21 00:23 Dose: 1 applic Documented by: Admin: 07/08/21 19:32 Dose: 1 applic Documented by: Admin: 07/08/21 16:01 Dose: 1 applic Documented by: Admin: 07/08/21 12:47 Dose: 1 applic Documented by: Admin: 07/08/21 11:40 Dose: Not Given Documented by: TERRI Enoxaparin Sodium (Enoxaparin 40 Mg/0.4 Ml Syringe) 40 mg SUBCUT DAILY [facility] Last Admin: 07/09/21 07:15 Dose: 40 mg Documented by: Admin: 07/08/21 08:54 Dose: 40 mg Documented by: Admin: 07/07/21 07:43 Dose: 40 mg Documented by: Admin: 07/06/21 08:06 Dose: 40 mg Documented by: GONZALO Ferrous Sulfate (Ferrous Sulfate 325 Mg Tab) 325 mg PO DAILY [facility] Last Admin: 07/09/21 07:17 Dose: 325 mg Documented by: Admin: 07/08/21 08:52 Dose: 325 mg Documented by: Admin: 07/07/21 07:44 Dose: 325 mg Documented by: Admin: 07/06/21 08:05 Dose: 325 mg Documented by: GONZALO Gabapentin (Gabapentin 300 Mg Cap) 600 mg PO BEDTIME [facility] Last Admin: 07/08/21 19:28 Dose: 600 mg Documented by: Admin: 07/07/21 19:46 Dose: 600 mg Documented by: Admin: 07/06/21 20:18 Dose: 600 mg Documented by: Admin: 07/05/21 19:30 Dose: 600 mg Documented by: [id number] Metoprolol Succinate (Metoprolol Succinate 25 Mg Tab.Er) 25 mg PO DAILY [facility] Last Admin: 07/09/21 07:16 Dose: 25 mg Documented by: Admin: 07/08/21 08:53 Dose: 25 mg Documented by: Admin: 07/07/21 07:45 Dose: 25 mg Documented by: Admin: 07/06/21 08:05 Dose: 25 mg Documented by: Admin: 07/05/21 15:32 Dose: 25 mg Documented by: PENG Ondansetron HCl (Ondansetron 4 Mg Tab.Dis) 8 mg PO Q6H PRN PRN Reason: Nausea/Vomiting Oseltamivir Phosphate (Oseltamivir 75 Mg Cap) 75 mg PO BID ABEBE Stop: 07/10/21 10:30 Last Admin: 07/09/21 07:16 Dose: 75 mg Documented by: Admin: 07/08/21 17:36 Dose: 75 mg Documented by: Admin: 07/08/21 08:52 Dose: 75 mg Documented by: Admin: 07/07/21 18:31 Dose: 75 mg Documented by: Admin: 07/07/21 07:45 Dose: 75 mg Documented by: Admin: 07/06/21 17:43 Dose: 75 mg Documented by: Admin: 07/06/21 08:06 Dose: 75 mg Documented by: Admin: 07/05/21 17:58 Dose: 75 mg Documented by: Admin: 07/05/21 10:38 Dose: 75 mg Documented by: PENG Polyethylene Glycol (Polyethylene Glycol 3350 Powder 17 Gm Packet) 17 gm PO DAILY PRN PRN Reason: Constipation Prednisone (Prednisone 20 Mg Tab) 40 mg PO WITHBREAKFAST ABEBE Stop: 07/10/21 10:00 Last Admin: 07/09/21 07:17 Dose: 40 mg Documented by: Admin: 07/08/21 08:53 Dose: 40 mg Documented by: Admin: 07/07/21 07:44 Dose: 40 mg Documented by: Admin: 07/06/21 09:56 Dose: 40 mg Documented by: GONZALO Sodium Chloride (Sodium Chloride 0.9% 10 Ml Syringe) 10 ml FLUSH ASDIRECTED PRN PRN Reason: Keep Vein Open Temazepam (Temazepam 15 Mg Cap) 15 mg PO BEDTIME PRN PRN Reason: Insomnia Last Admin: 07/08/21 19:30 Dose: 15 mg Documented by: Admin: 07/07/21 19:51 Dose: 15 mg Documented by: Admin: 07/06/21 20:18 Dose: 15 mg Documented by: Admin: 07/05/21 20:15 Dose: 15 mg Documented by: [email or web address] Valacyclovir HCl (Valacyclovir 1,000 Mg Tab) 1,000 mg PO DAILY [facility] Stop: 07/09/21 12:00 Last Admin: 07/09/21 07:16 Dose: 1,000 mg Documented by: Admin: 07/08/21 08:52 Dose: 1,000 mg Documented by: Admin: 07/07/21 07:44 Dose: 1,000 mg Documented by: Admin: 07/06/21 08:05 Dose: 1,000 mg Documented by: [email or web address] Admin: 07/05/21 22:15 Dose: 1,000 mg Documented by: [id number] Venlafaxine HCl (Venlafaxine 75 Mg Cap.Er) 150 mg PO BEDTIME [facility] Last Admin: 07/08/21 19:29 Dose: 150 mg Documented by: Admin: 07/07/21 19:47 Dose: 150 mg Documented by: Admin: 07/06/21 20:18 Dose: 150 mg Documented by: Admin: 07/05/21 19:30 Dose: 150 mg Documented by: [id number] Labs: Laboratory Tests 07/05/21 07/05/21 07/05/21 Range/Units 09:06 09:20 09:20 WBC 13.7 H (4.0-10.2) K/uL RBC 4.44 (3.77-5.09) M/uL Hgb 12.9 (11.7-15.5) g/dL Hct 40.8 (34.0-46.0) % MCV 91.9 (84.0-98.0) fL MCH 29.1 (28.2-33.3) pg MCHC 31.6 L (31.7-36.0) g/dL RDW 13.3 (11.2-14.1) % Plt Count 326 (150-350) K/uL Neut % (Auto) 82.6 H (45.0-80.0) % Lymph % (Auto) 9.3 L (10.0-50.0) % Ramsey % (Auto) 7.9 (2.0-14.0) % Eos % (Auto) 0.1 (0.0-5.0) % Baso % (Auto) 0.1 (0.0-2.0) % Neut # (Auto) 11.34 H (1.40-7.00) K/uL Lymph # (Auto) 1.28 (0.50-3.50) K/uL Ramsey # (Auto) 1.08 H (0.00-1.00) K/uL Eos # (Auto) 0.02 (0.00-0.50) K/uL Baso # (Auto) 0.02 (0.00-0.20) K/uL D-Dimer, Quantitative 815 H (0-400) ng/mL Sodium (136-145) mmol/L Potassium (3.5-5.1) mmol/L Chloride (98-107) mmol/L Carbon Dioxide (21.0-32.0) mmol/L Anion Gap (7-15) meq/L BUN (7-18) mg/dL Creatinine (0.51-1.17) mg/dL Est Cr Clr Drug Dosing mL/min Estimated GFR (MDRD) mL/min Glucose (70-99) mg/dL Calcium (8.5-10.1) mg/dL Total Bilirubin (0.2-1.0) mg/dL AST (15-37) U/L ALT (12-78) U/L Alkaline Phosphatase (46-116) IU/L NT-Pro-B Natriuret Pep (0-125) pg/mL Total Protein (6.4-8.2) g/dL Albumin (3.4-5.0) g/dL Influenza Type A RNA Positive H (NEGATIVE) RSV RNA (INAAT) Negative (NEGATIVE) Influenza Type B RNA Negative (NEGATIVE) SARS-CoV-2 RNA (DAMON) Negative (NEGATIVE) 07/05/21 Range/Units 09:20 WBC (4.0-10.2) K/uL RBC (3.77-5.09) M/uL Hgb (11.7-15.5) g/dL Hct (34.0-46.0) % MCV (84.0-98.0) fL MCH (28.2-33.3) pg MCHC (31.7-36.0) g/dL RDW (11.2-14.1) % Plt Count (150-350) K/uL Neut % (Auto) (45.0-80.0) % Lymph % (Auto) (10.0-50.0) % Ramsey % (Auto) (2.0-14.0) % Eos % (Auto) (0.0-5.0) % Baso % (Auto) (0.0-2.0) % Neut # (Auto) (1.40-7.00) K/uL Lymph # (Auto) (0.50-3.50) K/uL Ramsey # (Auto) (0.00-1.00) K/uL Eos # (Auto) (0.00-0.50) K/uL Baso # (Auto) (0.00-0.20) K/uL D-Dimer, Quantitative (0-400) ng/mL Sodium 140 (136-145) mmol/L Potassium 4.1 (3.5-5.1) mmol/L Chloride 102 (98-107) mmol/L Carbon Dioxide 30.0 (21.0-32.0) mmol/L Anion Gap 8.0 (7-15) meq/L BUN 24 H (7-18) mg/dL Creatinine 0.90 (0.51-1.17) mg/dL Est Cr Clr Drug Dosing 57.37 mL/min Estimated GFR (MDRD) > 60 mL/min Glucose 116 H (70-99) mg/dL Calcium 8.8 (8.5-10.1) mg/dL Total Bilirubin 0.4 (0.2-1.0) mg/dL AST 33 (15-37) U/L ALT 32 (12-78) U/L Alkaline Phosphatase 85 (46-116) IU/L NT-Pro-B Natriuret Pep 85 (0-125) pg/mL Total Protein 7.6 (6.4-8.2) g/dL Albumin 3.0 L (3.4-5.0) g/dL Influenza Type A RNA (NEGATIVE) RSV RNA (INAAT) (NEGATIVE) Influenza Type B RNA (NEGATIVE) SARS-CoV-2 RNA (DAMON) (NEGATIVE) Meds: Medications Generic Name Dose Route Start Last Admin Trade Name Freq PRN Reason Stop Dose Admin Acetaminophen 650 mg 07/05/21 11:01 07/08/21 19:27 Acetaminophen 325 Mg Tab PO 650 mg Q4H PRN Administration Pain (Mild 1-3)/fever Albuterol/Ipratropium 3 ml 07/07/21 12:00 07/09/21 07:15 Albuterol/Ipratropium 3.0-0.5 Mg/3 Ml Neb Soln NEB 3 ml Q4H ABEBE Administration Atorvastatin Calcium 20 mg 07/05/21 20:00 07/08/21 19:29 Atorvastatin 40 Mg Tab PO 20 mg BEDTIME ABEBE Administration Docosanol 0 gm 07/08/21 10:30 07/09/21 07:15 Docosanol 10% Cream 2 Gm Tube TOP 1 applic Q4HWA [facility] Administration Enoxaparin Sodium 40 mg 07/06/21 08:00 07/09/21 07:15 Enoxaparin 40 Mg/0.4 Ml Syringe SUBCUT 40 mg DAILY [facility]BE Administration Ferrous Sulfate 325 mg 07/06/21 08:00 07/09/21 07:17 Ferrous Sulfate 325 Mg Tab PO 325 mg DAILY ABEBE Administration Gabapentin 600 mg 07/05/21 20:00 07/08/21 19:28 Gabapentin 300 Mg Cap PO 600 mg BEDTIME ABEBE Administration Metoprolol Succinate 25 mg 07/05/21 15:15 07/09/21 07:16 Metoprolol Succinate 25 Mg Tab.Er PO 25 mg DAILY ABEBE Administration Ondansetron HCl 8 mg 07/05/21 11:01 Ondansetron 4 Mg Tab.Dis PO Q6H PRN Nausea/Vomiting Oseltamivir Phosphate 75 mg 07/05/21 10:30 07/09/21 07:16 Oseltamivir 75 Mg Cap PO 07/10/21 10:30 75 mg BID ABEBE Administration Polyethylene Glycol 17 gm 07/05/21 11:01 Polyethylene Glycol 3350 Powder 17 Gm Packet PO DAILY PRN Constipation Prednisone 40 mg 07/06/21 10:00 07/09/21 07:17 Prednisone 20 Mg Tab PO 07/10/21 10:00 40 mg WITHBREAKFAST ABEBE Administration Sodium Chloride 10 ml 07/05/21 09:31 Sodium Chloride 0.9% 10 Ml Syringe FLUSH ASDIRECTED PRN Keep Vein Open Temazepam 15 mg 07/05/21 19:48 07/08/21 19:30 Temazepam 15 Mg Cap PO 15 mg BEDTIME PRN Administration Insomnia Valacyclovir HCl 1,000 mg 07/05/21 22:15 07/09/21 07:16 Valacyclovir 1,000 Mg Tab PO 07/09/21 12:00 1,000 mg DAILY ABEBE Administration Venlafaxine HCl 150 mg 07/05/21 20:00 07/08/21 19:29 Venlafaxine 75 Mg Cap.Er PO 150 mg BEDTIME ABEBE Administration Discontinued Medications Generic Name Dose Route Start Last Admin Trade Name Freq PRN Reason Stop Dose Admin Albuterol/Ipratropium 3 ml 07/05/21 11:01 07/07/21 07:49 Albuterol/Ipratropium 3.0-0.5 Mg/3 Ml Neb Soln NEB 3 ml Q4H PRN Administration Dyspnea Lactated Ringer's 1,000 mls @ 999 mls/hr 07/05/21 10:15 07/05/21 10:15 Ringers, Lactated IV 07/05/21 11:15 999 mls/hr .BOLUS ONE Administration Iopamidol 100 ml 07/05/21 10:46 07/05/21 11:33 Iopamidol 755 Mg/Ml 100 Ml Bottle IVPUSH 07/05/21 10:47 100 ml ONETIME ONE Administration Metoprolol Succinate 25 mg 07/06/21 08:00 Metoprolol Succinate 25 Mg Tab.Er PO DAILY ABEBE - Problem List & Annotations (1) HSV (herpes simplex virus) infection Status: Chronic Priority: Low Current Visit: Yes Annotation/Comment:: pt had breakout of HSV on right upper lip and right nostril. valtrex ordered at 1000mg once daily for 5 days. abreva also ordered. resolving at discharge. (2) Acute respiratory failure with hypoxia SNOMED Code(s): 11005932, [id number] Code(s): J96.01 - ACUTE RESPIRATORY FAILURE WITH HYPOXIA Status: Acute Priority: High Current Visit: Yes Onset Date: ~07/06/21 Annotation/Comment:: increased difficulty breathing. baseline nicotine dependence. influenza A positive with likely COPD. oxygen weaned as tolerated with 6 minute walk on discharge requiring 2L continuous oxygen at home. rehabilitation case coordinator assisted with arranging (3) Influenza A SNOMED Code(s): 040312049 Code(s): J10.1 - FLU DUE TO OTH IDENT INFLUENZA VIRUS W OTH RESP MANIFEST Status: Acute Priority: High Current Visit: Yes Onset Date: ~07/06/21 Annotation/Comment:: influenza A positive. treated with 5 day course of 75mg bid oseltamivir. - Problem List Review Problem List Initiated/Reviewed/Updated: Yes
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
[2021-07-08] MEDS: Acetaminophen 325 MG Tab PO PRN (19:27)
[2021-07-08] MEDS: Gabapentin 300 MG Cap PO SCH (19:28)
[2021-07-08] MEDS: Venlafaxine 75 MG Cap.ER PO SCH (19:29)
[2021-07-08] MEDS: atorvaSTATin 40 MG Tab PO SCH (19:29)
[2021-07-08] MEDS: Temazepam 15 MG Cap PO PRN (19:30)
[2021-07-09] MEDS: Albuterol/Ipratropium 3.0-0.5 MG/3 ML Neb Soln NEB SCH ×3 (00:20→07:15)
[2021-07-09] MEDS: Enoxaparin 40 MG/0.4 ML Syringe SUBCUT SCH (07:15)
[2021-07-09] MEDS: Oseltamivir 75 MG Cap PO SCH (07:16)
[2021-07-09] MEDS: valACYclovir 1,000 MG Tab PO SCH (07:16)
[2021-07-09] MEDS: Metoprolol Succinate 25 MG Tab.ER PO SCH (07:16)
[2021-07-09] MEDS: Ferrous Sulfate 325 MG Tab PO SCH (07:17)
[2021-07-09] MEDS: predniSONE 20 MG Tab PO SCH (07:17)
[2021-07-09 07:21] VITALS: BP 139/79; PULSE 74
--- NOTE | 2021-07-09 08:04 | PCM.DCSUM1 ---
Discharge Summary - Hospital Course HPI Initial Comments: Rupinder is a 70 year old woman with PMH most significant for nicotine dependence and likely COPD. She presented to the ED with insidious onset shortness of breath. oxygen saturations were in the high 70s/low 80s on room air. She initially required 3-4L supplemental oxygen to maintain saturations >88%. influenza A positive. started on tamiflu. HSV outbreak on right upper lip and right nostril so valtrex was also ordered for her. oxygen weaned as tolerated. 6 minute walk showed 2LPM continuous oxygen requirement. renal case manager consulted to assist with discharge disposition planning. Diagnosis: Stroke: No Modified Witt Scale: Slight Disable;Unable to Carry Out Prev Act.Able to Look After Affairs Modified Bg Scale Score: 2 - Discharge Data Discharge Date: 07/09/21 Discharge Disposition: Home, Self-Care 01 Condition: Good - Referral to Home Health Primary Care Physician: Reyna Craft PA-C - Discharge Diagnosis/Problem(s) (1) HSV (herpes simplex virus) infection Status: Chronic Priority: Low Current Visit: Yes Problem Details: pt had breakout of HSV on right upper lip and right nostril. valtrex ordered at 1000mg once daily for 5 days. abreva also ordered. resolving at discharge. (2) Acute respiratory failure with hypoxia SNOMED Code(s): 13925811, [id number] ICD Code: J96.01 - ACUTE RESPIRATORY FAILURE WITH HYPOXIA Status: Acute Priority: High Current Visit: Yes Onset Date: ~07/06/21 Problem Details: increased difficulty breathing. baseline nicotine dependence. influenza A positive with likely COPD. oxygen weaned as tolerated with 6 minute walk on discharge requiring 2L continuous oxygen at home. renal case manager assisted with arranging (3) Influenza A SNOMED Code(s): 440185446 ICD Code: J10.1 - FLU DUE TO OTH IDENT INFLUENZA VIRUS W OTH RESP MANIFEST Status: Acute Priority: High Current Visit: Yes Onset Date: ~07/06/21 Problem Details: influenza A positive. treated with 5 day course of 75mg bid oseltamivir. - Patient Instructions Diet: Regular Diet as Tolerated Driving: May Drive Today Showering/Bathing: May Shower - Discharge Plan *PRESCRIPTION DRUG MONITORING PROGRAM REVIEWED*: Not Applicable *COPY OF PRESCRIPTION DRUG MONITORING REPORT IN PATIENT MARINA: Not Applicable Prescriptions/Med Rec: RX: predniSONE 40 mg PO WITHBREAKFAST #1 tablet RX: Oseltamivir [Tamiflu] 75 mg PO BID #3 cap Tobacco Cessation Medication: Prescription Refused Home Medications: Home Meds RX: Ascorbic Acid [Vitamin C] 500 mg PO BEDTIME 07/05/21 [History] RX: Calcium Carb/Vit D3/Minerals [Calcium 600+D Plus Minerals] 1 each PO BID 07/05/21 [History] RX: Cholecalciferol (Vitamin D3) [Vitamin D3] 2,000 unit PO DAILY 07/05/21 [History] RX: Ferrous Sulfate [Iron] 325 mg PO DAILY 07/05/21 [History] RX: Gabapentin [Neurontin] 600 mg PO BEDTIME 07/05/21 [History] RX: Glucosam/Chond-MSM 2/C/D3/Delbert [Ysjtyhnsqi-Vavmfmabqga-JNO] 1 each PO BID 07/05/21 [History] RX: Metoprolol Succinate 25 mg PO DAILY 07/05/21 [History] RX: Venlafaxine HCl [Venlafaxine HCl ER] 150 mg PO BEDTIME 07/05/21 [History] RX: atorvaSTATin [Lipitor] 20 mg PO BEDTIME 07/05/21 [History] RX: Oseltamivir [Tamiflu] 75 mg PO BID #3 cap 07/09/21 [Rx] RX: Sodium Chloride 0.9% [Saline Flush] 10 ml FLUSH ASDIRECTED PRN syringe 07/09/21 [Rx] RX: Temazepam [Restoril] 15 mg PO BEDTIME PRN cap 07/09/21 [Rx] RX: predniSONE 40 mg PO WITHBREAKFAST #1 tablet 07/09/21 [Rx] Oxygen Therapy Mode: Nasal Cannula Oxygen Flow Rate (L/min): 2 (required new Rx of 2LPM continuous. ) Maintain SpO2% greater than: 88 Patient Handouts: Influenza, Adult, [id number]-ad-Esvd Forms: ED Department Discharge Referrals: Reyna Craft PA-C [Primary Care Provider] - - Discharge Summary/Plan Comment DC Time >30 min.: Yes Total # of Minutes for Discharge Time: 60 Discharge Summary/Plan Comment: Rupinder is a 70 year old woman with PMH most significant for nicotine dependence and likely COPD. She presented to the ED with insidious onset shortness of breath. oxygen saturations were in the high 70s/low 80s on room air. She initially required 3-4L supplemental oxygen to maintain saturations >88%. influenza A positive. started on tamiflu. HSV outbreak on right upper lip and right nostril so valtrex was also ordered for her. oxygen weaned as tolerated. 6 minute walk showed 2LPM continuous oxygen requirement. renal case manager consulted to assist with discharge disposition planning. Rupinder will also need to be referred to pulmonology for evaluation of a left sided 10mm pulmonary nodularity and official PFTs for COPD diagnosis. she was thought to be medically stable for discharge on the morning of 07/09/21. All questions and concerns were addressed at bedside prior to discharge. - General Info Date of Service: 07/09/21 Admission Dx/Problem (Free Text: influenza A, acute respiratory failure with hypoxia Subjective Update: doing well today. anxious to discharge and get back to work. no acute concerns. Functional Status: Reports: Pain Controlled, Tolerating Diet, Ambulating, Incentive Spirometry. Denies: New Symptoms - Review of Systems General: Reports: No Symptoms HEENT: Reports: No Symptoms Pulmonary: Reports: No Symptoms Cardiovascular: Reports: Dyspnea on Exertion Gastrointestinal: Reports: No Symptoms Genitourinary: Reports: No Symptoms Musculoskeletal: Reports: No Symptoms Skin: Reports: No Symptoms Neurological: Reports: No Symptoms Psychiatric: Reports: No Symptoms - Patient Data Vitals - Most Recent: Last Vital Signs Temp 98.2 F 07/09/21 07:59 Pulse 74 07/09/21 07:59 Resp 18 07/09/21 07:59 BP 139/79 07/09/21 07:59 Pulse Ox 95 07/09/21 07:59 Weight - Most Recent: 173 lb 3.2 oz I&O - Last 24 hours: Intake & Output 07/08/21 07/09/21 07/09/21 22:59 06:59 14:59 Intake Total 1300 200 Output Total 400 225 Balance 900 -25 Med Orders - Current: Current Medications Acetaminophen (Acetaminophen 325 Mg Tab) 650 mg PO Q4H PRN PRN Reason: Pain (Mild 1-3)/fever Last Admin: 07/08/21 19:27 Dose: 650 mg Documented by: Albuterol/Ipratropium (Albuterol/Ipratropium 3.0-0.5 Mg/3 Ml Neb Soln) 3 ml NEB Q4H ABEBE Last Admin: 07/09/21 07:15 Dose: 3 ml Documented by: Atorvastatin Calcium (Atorvastatin 40 Mg Tab) 20 mg PO BEDTIME [facility] Last Admin: 07/08/21 19:29 Dose: 20 mg Documented by: Docosanol (Docosanol 10% Cream 2 Gm Tube) 0 gm TOP Q4HWA [facility] Last Admin: 07/09/21 07:15 Dose: 1 applic Documented by: Enoxaparin Sodium (Enoxaparin 40 Mg/0.4 Ml Syringe) 40 mg SUBCUT DAILY [facility] Last Admin: 07/09/21 07:15 Dose: 40 mg Documented by: Ferrous Sulfate (Ferrous Sulfate 325 Mg Tab) 325 mg PO DAILY [facility] Last Admin: 07/09/21 07:17 Dose: 325 mg Documented by: Gabapentin (Gabapentin 300 Mg Cap) 600 mg PO BEDTIME [facility] Last Admin: 07/08/21 19:28 Dose: 600 mg Documented by: Metoprolol Succinate (Metoprolol Succinate 25 Mg Tab.Er) 25 mg PO DAILY [facility] Last Admin: 07/09/21 07:16 Dose: 25 mg Documented by: Ondansetron HCl (Ondansetron 4 Mg Tab.Dis) 8 mg PO Q6H PRN PRN Reason: Nausea/Vomiting Oseltamivir Phosphate (Oseltamivir 75 Mg Cap) 75 mg PO BID [facility] Stop: 07/10/21 10:30 Last Admin: 07/09/21 07:16 Dose: 75 mg Documented by: Polyethylene Glycol (Polyethylene Glycol 3350 Powder 17 Gm Packet) 17 gm PO DAILY PRN PRN Reason: Constipation Prednisone (Prednisone 20 Mg Tab) 40 mg PO WITHBREAKFAST [facility] Stop: 07/10/21 10:00 Last Admin: 07/09/21 07:17 Dose: 40 mg Documented by: Sodium Chloride (Sodium Chloride 0.9% 10 Ml Syringe) 10 ml FLUSH ASDIRECTED PRN PRN Reason: Keep Vein Open Temazepam (Temazepam 15 Mg Cap) 15 mg PO BEDTIME PRN PRN Reason: Insomnia Last Admin: 07/08/21 19:30 Dose: 15 mg Documented by: Valacyclovir HCl (Valacyclovir 1,000 Mg Tab) 1,000 mg PO DAILY [facility] Stop: 07/09/21 12:00 Last Admin: 07/09/21 07:16 Dose: 1,000 mg Documented by: Venlafaxine HCl (Venlafaxine 75 Mg Cap.Er) 150 mg PO BEDTIME ABEBE Last Admin: 07/08/21 19:29 Dose: 150 mg Documented by: Discontinued Medications Albuterol/Ipratropium (Albuterol/Ipratropium 3.0-0.5 Mg/3 Ml Neb Soln) 3 ml NEB Q4H PRN PRN Reason: Dyspnea Last Admin: 07/07/21 07:49 Dose: 3 ml Documented by: Lactated Ringer's (Ringers, Lactated) 1,000 mls @ 999 mls/hr IV .BOLUS ONE Stop: 07/05/21 11:15 Last Admin: 07/05/21 10:15 Dose: 999 mls/hr Documented by: Iopamidol (Iopamidol 755 Mg/Ml 100 Ml Bottle) 100 ml IVPUSH ONETIME ONE Stop: 07/05/21 10:47 Last Admin: 07/05/21 11:33 Dose: 100 ml Documented by: Metoprolol Succinate (Metoprolol Succinate 25 Mg Tab.Er) 25 mg PO DAILY ABEBE - Exam Quality Assessment: Reports: Supplemental Oxygen. Denies: Urine Catheter, DVT Prophylaxis, Skin Breakdown General: Reports: Alert, Oriented, Cooperative, No Acute Distress HEENT: Reports: EOMI Neck: Reports: Supple, No JVD Lungs: Reports: Decreased Breath Sounds (bases), Wheezing (mild expiratory). Denies: Crackles, Rales, Rhonchi, Rub Cardiovascular: Reports: Regular Rate, Regular Rhythm, No Murmurs GI/Abdominal Exam: Soft, Non-Tender (Female) Exam: Deferred Rectal (Female) Exam: Deferred Back Exam: Reports: Full Range of Motion Extremities: Normal Range of Motion, Non-Tender, No Pedal Edema Skin: Reports: Warm, Dry, Intact Neurological: Reports: No New Focal Deficit Psy/Mental Status: Reports: Alert, Normal Affect, Normal Mood *Q Meaningful Use (DIS) - VTE *Q VTE Mechanical Contraindications *Q: Tx/Proc Refused byPt VTE Pharmacological Contraindications *Q: Tx/Proc Refused by Pt VTE Anticoagulation Contraindications: Tx/proc Refused by PT - Stroke *Q Aspirin Contraindications Stroke *Q: Patient Refusal Anticoagulation Contraindications Stroke *Q: TX/PROC Refused by PT Antithrombotic Contraindications Stroke *Q: TX/PROC Refused by PT Statin Contraindications Stroke *Q: TX/PROC Refused by PT Rehabilitation Assessment Contraindication *Q: Tx/proc refused by pt - AMI *Q Aspirin Contraindications AMI *Q: TX/PROC Refused by PT Statin Contraindications AMI *Q: TX/Proc Refused by PT
== END 2021-07-09 10:37 | disposition home or self-care (01) | DRG 193 ==
LOC: LL.ED 08:45 → LL.MS 10:15
PROVIDERS: ADMIT Hospitalist; ATTEND Hospitalist
DX: J10.1 Influenza due to other identified influenza virus with other respiratory manifestations (principal); J96.01 Acute respiratory failure with hypoxia; B00.9 Herpesviral infection, unspecified; Z66 Do not resuscitate; Z20.822 Contact with and (suspected) exposure to COVID-19; F17.210 Nicotine dependence, cigarettes, uncomplicated; H54.7 Unspecified visual loss; E78.00 Pure hypercholesterolemia, unspecified; M19.90 Unspecified osteoarthritis, unspecified site; G25.81 Restless legs syndrome; Z79.899 Other long term (current) drug therapy
CPT/HCPCS: 0241U; 36415; 71275; 80048; 80053; 83880; 85025; 85027; 85379; 94640; 94761; 99285-25; A9270-GY; J1650; J7120; J7512; J7620-GY; Q9967